=== PATIENT | male | born 1985 | race African-American/Black ===

== ENCOUNTER 2016-06-14 15:17 | Emergency (ER) | payer SELFPAY | END 2016-06-14 15:57 | disposition home or self-care (01) | LOC: ER 15:17 | PROC: 09C4XZZ Extirpation of Matter from Left External Auditory Canal, External Approach (ICD-10-PCS; principal; 2016-06-14) | DX: T16.2XXA Foreign body in left ear, initial encounter (principal); W45.8XXA Other foreign body or object entering through skin, initial encounter | CPT/HCPCS: 99283 ==